=== PATIENT | female | born 1990 | race Caucasian/White ===

== ENCOUNTER 2024-02-19 23:01 | Emergency (ER) | payer MEDICAID ==
[~2024-02-19] VITALS: Ht 165.1 cm; Wt 71.0 kg
[2024-02-19 23:17] VITALS: O2SAT 99
[2024-02-19] MEDS ORDERED: AMOX1TAB16 MT (23:29)
[2024-02-19] MEDS ORDERED: IBUP-2029 MT (23:44)
[2024-02-20] VITALS: BP 137/84; PULSE 86; RESP 18; TEMP 94
[2024-02-20] MEDS: KETOROLAC 30MG/ML VIAL IM ONE
== END 2024-02-20 02:32 | disposition left against medical advice (07) ==
LOC: ER 23:12
DX: K08.89 Other specified disorders of teeth and supporting structures (principal); K02.9 Dental caries, unspecified; I10 Essential (primary) hypertension
CPT/HCPCS: 99283; 96372; J1885